=== PATIENT | male | born 1975 | race Caucasian/White ===

== ENCOUNTER 2017-01-23 08:44 | Emergency (ER) | payer OTHER ==
[~2017-01-23] VITALS: Ht 188 cm; Wt 137.8 kg
[2017-01-23 10:20] LABS: EOSINOPHIL (%) 1.8 % (0-5); EOSINOPHIL COUNT 0.1 K/uL (0-0.3); IMMATURE GRANULOCYTE (%) 0.3 % (0.0-0.7); LYMPHOCYTE COUNT 1.9 K/uL (1.0-2.8); MCH 27.9 PG (29.0-34.0); MCHC 33.7 G/DL (30.0-36.0); MCV 82.7 FL (86-99); MEAN PLAT.VOLUME 10.8 uM^3 (9.0-12.4); MONOCYTE (%) 7.8 % (3-12); MONOCYTE COUNT 0.6 K/uL (0-0.8); PLATELET COUNT 204 K/uL (156-360); RBC DIS.WIDTH-CV 13.4 % (11.8-14.6); RBC DIS.WIDTH-SD 39.8 % (39-53); RED BLOOD COUNT 5.56 M/uL (4.00-5.50); WHITE BLOOD COUNT 7.7 K/uL (4.1-10.2)
[2017-01-23 10:35] LABS: CHLORIDE 103 mEq/L (99-109); SODIUM 139 mEq/L (136-147)
[2017-01-23 10:37] LABS: GLUCOSE 109 mg/dL (70-99)
[2017-01-23 10:38] LABS: ANION GAP 8 MEQ/L (2-14)
[2017-01-23 10:41] LABS: GFR ESTIMATE (CALCULATED) > 59 mL/min/
[2017-01-23 10:42] LABS: UREA NITROGEN (BUN) 12 mg/dL (9-23)
[2017-01-23 12:14] LABS: APPEARANCE CLOUDY-BLOODY; MONONUCLEAR WBC'S 5 %; POLYNUCLEAR WBC'S 95 % (0-25); RED CELL COUNT 120000 /MM^3 (0-1); SYNOVIAL FLUID EOSINOPHILS 0 % (0-25); WHITE CELL COUNT 1066 /MM^3 (0-200.0)
[2017-01-23 12:36] LABS: CRYSTALS NO CRYSTALS SEEN
[2017-01-23] MEDS ORDERED: PERCOCET 5/31 TABLET PO (12:49)
[2017-01-23 13:08] VITALS: BP 146/89
== END 2017-01-23 13:09 | disposition home or self-care (01) ==
LOC: EME 08:44
PROVIDERS: Emergency Medicine
PROC: 0S9D3ZZ Drainage of Left Knee Joint, Percutaneous Approach (ICD-10-PCS; principal; 2017-01-23)
DX: M25.062 Hemarthrosis, left knee (principal); S80.02XA Contusion of left knee, initial encounter; W17.2XXA Fall into hole, initial encounter; Y92.007 Garden or yard of unspecified non-institutional (private) residence as the place of occurrence of the external cause; Y93.H2 Activity, gardening and landscaping
CPT/HCPCS: 73564; 80048; 85025; 87205; 89051; 99281; 99284